=== PATIENT | male | born 1980 | race Caucasian/White ===

== ENCOUNTER 2023-02-28 23:41 | Emergency (ER) | payer MEDICAID, SELFPAY ==
[2023-02-28 23:54] VITALS: BP 161/96; PULSE 76; RESP 16; TEMP 36.4; O2SAT 97; BMI 20.7
--- NOTE | 2023-03-01 00:22 | ED.ABDPAIN ---
HPI - Abdominal Pain General Chief Complaint: Abdominal Pain Stated Complaint: stomach pain, n/v Time Seen by Provider: 03/01/23 00:19 Source: patient Mode of arrival: ambulatory Limitations: no limitations History of Present Illness HPI narrative: 42-year-old male who presents emergency department for evaluation of abdominal pain, nausea and vomiting. The patient states that he was at [place] [employer] [place] [facility] restaurant and ordered 2 fish tacos. He states that he ate 1 Taco at 21:30 hours and immediately started to feel ill. He states he developed nausea and had to go to the bathroom and vomited several times. The patient states that since then he has had multiple episodes of vomiting. He is also complaining of abdominal pain. Points to his epigastric area when asked to localize the pain. The pain is a constant, burning sensation. Patient denied being ill in any way prior to eating the fish Taco. The patient states that the patient Taco contained fish, cabbage and dressing. He did eat some chips and salsa as well as some rice which other members in his green party 80 in did not get ill. A child was in the patient's green party and also ate one of his fish Taco . She became ill as well, she had nausea vomiting abdominal pain. She also had a syncopal episode. This person is also patient here in the emergency department. Related Data Allergies Allergy/AdvReac Type Severity Reaction Status Date / Time No Known Allergies Allergy Verified 02/28/23 23:56 Review of Systems Review of Systems Yes all other systems are reviewed and are negative PENDING SALE TO [facility] Past Medical History PENDING SALE TO [facility] Narrative: Past medical history: None Social History Social History Alcohol intake: current Alcohol intake frequency: a few times a month Smoked in Last 30 Days: Yes Use of substances other than those prescribed or required for medical reasons: No Advance Directives: No Advance Directives Information Provided: No Physical Exam ED Vital Signs: Vital Signs - 24 hr 02/28/23 23:54 Temperature 97.6 F Pulse Rate 76 Respiratory Rate 16 Blood Pressure 161/96 H Pulse Oximetry 97 Oxygen Delivery Method Room Air BMI result Body Mass Index 20.7 Const Other: The patient is awake, alert, he appears to be in distress secondary to his abdominal pain, he is actively retching and vomiting HENMT Head: Yes normal to inspection, Yes normocephalic and Yes atraumatic Ears: external ears normal General nose exam: Normal external nose present Face and sinus: Yes normal facial exam Mouth: Normal oral and palatal mucosa present Throat: Yes posterior oropharynx normal Eyes General: appearance normal, both eyes and all related structures Neck Neck: Yes normal visual inspection, Yes no lymphadenopathy, Yes trachea midline and Yes supple Chest Chest palpation & inspection: normal inspection of the chest and normal palpation of entire chest wall Resp Effort & Inspection: normal respiratory effort and able to speak in complete sentences Auscultation: clear to auscultation bilaterally Cardio Rate: regular rate Rhythm: regular rhythm Heart sounds: S1 normal heart sound present, S2 normal heart sound present and no murmurs GI Other: Patient's abdomen is soft, nondistended, he has moderate epigastric tenderness, there is no rebound, no voluntary or involuntary guarding General: Yes no CVA tenderness Back/Spine/Pelvis Back: no CVA tenderness Skin General skin exam: no rashes or lesions noted Neuro Cognition (Neuro): normal cognition Motor exam (neuro): 5/5 motor strength present throughout Extrem General: Yes normal to inspection Psych Appearance: grossly normal Speech and movement: Normal speech and movement present Affect: normal affect Attitude: cooperative Medical Decision Making Medical Decision Making [facility] Narrative: 42-year-old man who presents emergency department for evaluation of nausea, vomiting, abdominal pain which began immediately after eating a fish Taco at 21:30 hours. Patient has had multiple episodes of emesis and has been epigastric pain. In the emergency department he was actively vomiting and retching. Examination did reveal epigastric tenderness. Patient was treated with Toradol 15 mg IV, Pepcid 20 mg IV and Zofran 4 mg IV. I also ordered normal saline x1 L. 0132: Patient had improvement of his pain but no improvement of his nausea or vomiting with the above treatment. Patient was given Reglan 10 mg IV and Benadryl 50 mg IV with some relief however he continued to vomit Patient was then given Phenergan 12.5 mg IV. At the end of my shift, the patient's care was turned over to my colleague, Dr. Venkat Caruso Differential Diagnosis Differential Diagnoses: The differential diagnosis associated with the presentation includes Differential diagnosis includes but is not limited to food poisoning caused by bacterial toxin (Staph aureus, Bacillus cereus) viral syndrome, Admission/Observation Consideration of admission/observation: Escalation of care including admission/observation considered Lab Data [facility] Lab Attestation statement: I reviewed the patient's lab results. My interpretation patient's laboratory evaluation is as follows: Elevated WBC 37295. CMP was normal. Lipase was not elevated. 03/01/23 00:30 03/01/23 00:58 Labs: Lab Results 03/01/23 03/01/23 Range/Units 00:30 00:58 WBC 15.4 H (4.8-10.8) X10*3/uL RBC 4.93 (4.60-5.80) X10*6/uL Hgb 15.0 (14.0-18.0) g/dl Hct 44.4 (42.0-52.0) % MCV 90.1 (80.0-98.0) fL MCH 30.4 (27.0-33.0) pg MCHC 33.8 (31.0-36.0) g/dl RDW 13.4 (11.0-16.0) % Plt Count 267 (160-400) X10*3/uL MPV 10.8 (9.4-12.4) fL Immature Gran % (Auto) 0.5 H (0.0-0.4) % Neut % (Auto) 78.2 H (45-73) % Lymph % (Auto) 13.5 L (20-40) % [place] % (Auto) 6.1 (2-11) % Eos % (Auto) 1.0 (0-4) % Baso % (Auto) 0.7 (0-2) % Lymph # (Auto) 2.1 (1.2-4.9) X10*3/uL [place] # (Auto) 0.9 (0.1-1.2) X10*3/uL Eos # (Auto) 0.2 (0.0-0.4) X10*3/uL Baso # (Auto) 0.1 (0.0-0.2) X10*3/uL Abs Immat Gran (auto) 0.08 H (0.00-0.03) X10*3/uL Absolute Neuts (auto) 12.0 H (2.0-8.3) x10*3/uL Absolute Nucleated RBC 0.000 (0.0-0.012) X10*3/uL Nucleated RBC % (auto) 0.0 (0.0-0.2) /100WBC Sodium 140 (135-145) mmol/L Potassium 3.6 (3.3-5.1) mmol/L Chloride 106 (96-108) mmol/L Carbon Dioxide 22 (22-29) mmol/L Anion Gap 16 (12-20) BUN 15 (9-16) mg/dL Creatinine 0.89 (0.5-1.4) mg/dL Estim Creat Clear Calc 99.3 Estimated GFR > 60 Random Glucose 106 (60-115) mg/dL Calcium 9.2 (8.4-10.2) mg/dL Total Bilirubin 0.3 (0.0-1.0) mg/dL AST 22 (5-37) U/L ALT 18 (0-40) U/L Alkaline Phosphatase 79 (39-117) U/L Total Protein 7.0 (6.5-8.0) g/dL Albumin 4.4 (3.5-5.0) g/dL Lipase 41 (8-78) U/L Medications Administered Discontinued Medications Generic Name Dose Route Start Last Admin Trade Name Freq PRN Reason Stop Dose Admin Diphenhydramine HCl 50 mg 03/01/23 00:42 03/01/23 00:45 Diphenhydramine Hcl 50 Mg/Ml Vial IVPUSH 03/01/23 00:43 50 mg ONCE STA Administration Famotidine 20 mg 03/01/23 00:22 03/01/23 00:33 Famotidine/Pf 20 Mg/2 Ml Vial IVPUSH 03/01/23 00:23 20 mg ONCE ONE Administration Sodium Chloride 1,000 mls @ 999 mls/hr 03/01/23 00:22 03/01/23 00:42 Ns IV 03/01/23 01:22 999 mls/hr .Q1H1M STA Administration Ketorolac Tromethamine 15 mg 03/01/23 00:22 03/01/23 00:34 Ketorolac Tromethamine 15 Mg/Ml Vial IVPUSH 03/01/23 00:23 15 mg ONCE STA Administration Metoclopramide HCl 10 mg 03/01/23 00:42 03/01/23 00:45 Metoclopramide Hcl 10 Mg/2 Ml Vial IVPUSH 03/01/23 00:43 10 mg ONCE STA Administration Ondansetron HCl 4 mg 03/01/23 00:22 03/01/23 00:34 Ondansetron Hcl 4 Mg/2 Ml Vial IVPUSH 03/01/23 00:23 4 mg ONCE ONE Administration Discharge Plan Discharge Clinical Impression: Food poisoning, Abdominal pain, Vomiting Patient Disposition: Still a Patient
[2023-03-01] MEDS: Famotidine/PF 20 MG/2 ML VIAL IVPUSH (00:33)
[2023-03-01 00:34] LABS: Basophils Absolute Auto 0.1 X10*3/uL (0.0-0.2); Basophils Percent Auto 0.7 % (0-2); Eosinophils Absolute Auto 0.2 X10*3/uL (0.0-0.4); Hematocrit 44.4 % (42.0-52.0); Imm Gran Abs Auto 0.08 X10*3/uL (0.00-0.03); Imm Gran Pct Auto 0.5 % (0.0-0.4); Lymphocytes Absolute Auto 2.1 X10*3/uL (1.2-4.9); Lymphocytes Percent Auto 13.5 % (20-40); MANUAL DIFF FLAG NO; Mean Corpuscular HGB Conc 33.8 g/dl (31.0-36.0); Mean Corpuscular Hemoglobin 30.4 pg (27.0-33.0); Mean Corpuscular Volume 90.1 fL (80.0-98.0); Mean Platelet Volume 10.8 fL (9.4-12.4); Monocytes Absolute Auto 0.9 X10*3/uL (0.1-1.2); Monocytes Percent Auto 6.1 % (2-11); Neutrophils Percent Auto 78.2 % (45-73); Platelet Count 267 X10*3/uL (160-400); Red Blood Count 4.93 X10*6/uL (4.60-5.80); Red Cell Distribution Width 13.4 % (11.0-16.0); White Blood Count 15.4 X10*3/uL (4.8-10.8)
[2023-03-01] MEDS: Ketorolac Tromethamine 15 MG/ML VIAL IVPUSH (00:34)
[2023-03-01] MEDS: ondansetron HCL 4 MG/2 ML VIAL IVPUSH (00:34)
[2023-03-01] MEDS: 0.9 % Sodium Chloride 1,000 ML 999 ML IV (00:42)
[2023-03-01] MEDS: Metoclopramide HCl 10 MG/2 ML VIAL IVPUSH (00:45)
[2023-03-01] MEDS: diphenhydrAMINE HCL 50 MG/ML VIAL IVPUSH (00:45)
[2023-03-01 01:17] LABS: Alanine Aminotransferase 18 U/L (0-40); Albumin Level 4.4 g/dL (3.5-5.0); Alkaline Phosphatase 79 U/L (39-117); Anion Gap 16 (12-20); Aspartate Amino Transferase 22 U/L (5-37); Bilirubin Total 0.3 mg/dL (0.0-1.0); Blood Urea Nitrogen 15 mg/dL (9-16); Calcium 9.2 mg/dL (8.4-10.2); Carbon Dioxide 22 mmol/L (22-29); Chloride 106 mmol/L (96-108); Creatinine Clr Calc Pharmacy 99.3; Estimated Glomerular Filt Rate > 60; Glucose Random 106 mg/dL (60-115); Lipase 41 U/L (8-78); Potassium 3.6 mmol/L (3.3-5.1); Sodium 140 mmol/L (135-145)
[2023-03-01] MEDS: Haloperidol Lactate 5 MG/ML VIAL 1 MG IM (02:59)
[2023-03-01 03:17] LABS: Appearance Urine Turbid; Color Urine Yellow; Glucose Urine UA Negative (Negative); Leukocyte Esterase Urine Negative (Negative); Nitrite Urine Negative (Negative); Specific Gravity - Urine 1.025 (1.005-1.025); Urine Blood Negative (Negative); Urine Ketones 40 mg/dL (Negative); Urine Protein Trace mg/dL (Neg-Trace)
[2023-03-01 03:25] LABS: Bacteria Urine None Seen (None Seen); Hyaline Casts Urine 0-2 /LPF (0-2); RBC Urine 0-2 /HPF (0-2); Squamous Epithelial Cell Urine 0-2 /HPF (0-2); WBC Urine 0-5 /HPF (0-5)
[2023-03-01 03:27] LABS: Amphetamine Screen Urine Not Detected (Not Detect); Barbiturates, Urine Not Detected (Not Detect); Benzodiazepines Screen Urine Not Detected (Not Detect); Cannabinoid Screen Urine POSITIVE (Not Detect); Cocaine Screen Urine Not Detected (Not Detect); Fentanyl, urine Not Detected (Not Detect); Opiate Screen Urine Not Detected (Not Detect); Phencyclidine Screen Urine Not Detected (Not Detect)
== END 2023-03-01 03:45 | disposition home or self-care (01) ==
PROVIDERS: Emergency Medicine Emergency Medical Services; Emergency Provider Emergency Medicine
DX: A05.9 Bacterial foodborne intoxication, unspecified (principal); R10.2 Pelvic and perineal pain; Z79.899 Other long term (current) drug therapy; R11.2 Nausea with vomiting, unspecified
CPT/HCPCS: 36415; 80053; 80307; 81001; 83690; 85025; 96361; 96374; 96375; 99284; 99285; J1200; J1885; J2405; J2550; J2765